=== PATIENT | male | born 1935 | race African-American/Black ===

== ENCOUNTER 2018-07-08 18:00 | Inpatient (IN) | payer MEDICARE ==
[2018-07-08 18:29] LABS: #Eosinphils 0.2 thou/uL (0.0-0.7); #Lymphocytes 0.8 thou/uL (1.20-3.40); #Monocytes 0.5 thou/uL (0.11-0.59); #Neutrophils 5.5 thou/uL (1.40-6.50); %Basophils 0.1 % (0.0-1.0); %Eosinophils 2.3 % (0.0-10.0); %Lymphocytes 11.3 % (21.0-51.0); %Monocytes 6.7 % (0.0-10.0); %Neutrophils 79.7 % (42.0-75.0); Hemoglobin 13.7 g/dL (14.0-18.0); Mean Corpuscular HGB CONC 31.9 g/dL (32.0-36.0); Mean Corpuscular Hemoglobin 30.1 pg (27.0-31.0); Mean Corpuscular Volume 94.3 fL (78.0-98.0); Mean Platelet Volume 8.4 fL (7.4-10.4); Platelet Count 147 thou/uL (130-400); RBC Distribution Width 12.9 % (11.5-14.5); Red Blood Cell (RBC) Count 4.55 mill/uL (4.70-6.10); White Blood Cell (WBC) Count 6.9 thou/uL (4.8-10.8)
[2018-07-08 18:45] LABS: ALT (SGPT) 9 U/L (8-55); AST (SGOT) 15 U/L (5-34); Albumin 4.1 g/dL (3.4-4.8); Alkaline Phosphatase 88 U/L (40-150); Anion Gap 13 mmol/L (10-20); BUN (Urea Nitrogen) 20 mg/dL (8.4-25.7); Bilirubin, Total 0.8 mg/dL (0.2-1.2); Calc. Creatinine Clearance 0 mL/min (70-130); Calcium 9.3 mg/dL (7.8-10.44); Carbon Dioxide 27 mmol/L (23-31); Chloride 107 mmol/L (98-107); Estimated GFR-MDRD 48; Globulin 2.9 g/dL (2.4-3.5); Glucose 113 mg/dL (83-110); Potassium 4.1 mmol/L (3.5-5.1); Sodium 143 mmol/L (136-145)
--- NOTE | 2018-07-08 20:52 | PDOC.FPRHP ---
- History of Present Illness Chief Complaint: Chest pain History of Present Illness: Mr. Lewis presents to the [place] ED for SOB and CP, he arrives via air for reported Vtach seen on monitor He reports that earlier today while visiting his child's grave he started to experience SOB and Chest pain, he did a few puffs of his albuterol inhaler with improvement of his SOB, the chest pain continued and is described as substernal , non radiating, dull pain, not relieved with nitroglycerin. He does not remember chest pain like this prior or having any chest pain around the time his stents were placed. He denies diaphoresis, nausea, diarrhea or syncope during this episode. The chest pain had resolved by the time of this history. ED Course: Vtach seen on cardiac care unit nurse in outside ED amio 150mg bolus and 1mg/min drip began at 1700 txfr to [facility] via air CBC, CMP, Trop, BNP, TSH - Allergies/Adverse Reactions Allergies Allergy/AdvReac Type Severity Reaction Status Date / Time No Known Drug Allergies Allergy Verified 07/08/18 23:12 - History PMHx: DMII, HTN, CAD, gout, Parkinsons PSHx: 7 cardiac stents over 30 years FHx: CAD, CA Social: former heavy drinker and smoker, denies drugs - Review of Systems General: denies: fever/chills, weight/appetite/sleep changes, fatigue Respiratory: reports: shortness of breath. denies: cough, congestion Cardiovascular: reports: chest pain. denies: palpitation, edema, orthopnea Gastrointestinal: denies: nausea, vomiting, diarrhea Genitourinary: denies: incontinence, dysuria Skin: denies: rashes, lesions Musculoskeletal: denies: pain, tenderness Neurological: denies: numbness, syncope, weakness - Vital signs BP: 168/79 HR: 52 RR: 22 Tmax: 97.9 Pox: 100% on RA Wt: 75.75kg - Physical Exam Constitutional: NAD HEENT: normocephalic and atraumatic, grossly normal vision, grossly normal hearing, MMM Neck: supple, trachea midline, no JVD Chest: no-tender to palpation, no lesions Heart: normal S1/S2, pulses present, no edema, other (sinus bradycardia) Lungs: CTAB, no respiratory distress, good air movement, no rales/rhonchi, no wheezing, no retractions Abdomen: soft, non-tender, no masses/distention Musculoskeletal: normal structure, normal tone Neurological: normal sensation, other (b/l tremor presnent) Skin: no rash/lesions, good turgor Heme/Lymphatic: no unusual bruising or bleeding Psychiatric: normal mood and affect FMR H&P: Results - Labs Result Diagrams: 07/08/18 18:22 07/08/18 18:22 Lab results: WBC 6.9 thou/uL (4.8-10.8) 07/08/18 18:22 Hgb 13.7 g/dL (14.0-18.0) L 07/08/18 18:22 Hct 42.9 % (42.0-52.0) 07/08/18 18:22 MCV 94.3 fL (78.0-98.0) 07/08/18 18:22 Plt Count 147 thou/uL (130-400) 07/08/18 18:22 Neutrophils % 79.7 % (42.0-75.0) H 07/08/18 18:22 Sodium 143 mmol/L (136-145) 07/08/18 18:22 Potassium 4.1 mmol/L (3.5-5.1) 07/08/18 18:22 Chloride 107 mmol/L (98-107) 07/08/18 18:22 Carbon Dioxide 27 mmol/L (23-31) 07/08/18 18:22 BUN 20 mg/dL (8.4-25.7) 07/08/18 18:22 Creatinine 1.67 mg/dL (0.7-1.3) H 07/08/18 18:22 Glucose 113 mg/dL (83-110) H 07/08/18 18:22 Lactic Acid 1.5 mmol/L (0.5-2.2) 07/08/18 18:22 Calcium 9.3 mg/dL (7.8-10.44) 07/08/18 18:22 Total Bilirubin 0.8 mg/dL (0.2-1.2) 07/08/18 18:22 AST 15 U/L (5-34) 07/08/18 18:22 ALT 9 U/L (8-55) 07/08/18 18:22 Alkaline Phosphatase 88 U/L (40-150) 07/08/18 18:22 B-Natriuretic Peptide 436.0 pg/mL (0-100) H 07/08/18 18:22 Serum Total Protein 7.0 g/dL (5.8-8.1) 07/08/18 18:22 Albumin 4.1 g/dL (3.4-4.8) 07/08/18 18:22 FMR H&P: A/P - Problem List (1) Chest pain Current Visit: Yes Status: Acute Code(s): R07.9 - CHEST PAIN, UNSPECIFIED (2) CAD (coronary artery disease) Current Visit: Yes Status: Acute Code(s): I25.10 - ATHSCL HEART DISEASE OF [place] CORONARY ARTERY W/O ANG PCTRS (3) DMII (diabetes mellitus, type 2) Current Visit: Yes Status: Acute (4) HTN (hypertension) Current Visit: Yes Status: Acute Code(s): I10 - ESSENTIAL (PRIMARY) HYPERTENSION (5) Gout Current Visit: Yes Status: Acute Code(s): M10.9 - GOUT, UNSPECIFIED (6) HLD (hyperlipidemia) Current Visit: Yes Status: Acute Code(s): E78.5 - HYPERLIPIDEMIA, UNSPECIFIED (7) CHF (congestive heart failure) Current Visit: Yes Status: Acute Code(s): I50.9 - HEART FAILURE, UNSPECIFIED (8) Parkinson disease Current Visit: Yes Status: Acute Code(s): G20 - PARKINSON'S DISEASE - Plan Chest pain - resolved, EKG shows sinus bradycardia, trop negx3, BNP near baseline - unlikely cardiac in nature, but significant cardiac history warrants further observation - EKG and nitro prn for significant chest pain - appreciate cardiology recs regarding stress vs cath vs imaging Reported Vtach - seen on cardiac care unit nurse, not on EKG, asymptomatic - believed 2/2 tremor - continuous cardiac monitoring - cardiology consulted from ED, continue amiodarone debora Loaiza - increase in magnitude of tremor - continue home meds - neurology, Dr. Edgar consulted from ED, appreciate recs CAD - significant hx, see above for plan - continue home meds DMII - continue home meds - mild SSI HTN - continue home meds, hydralazine prn SBP>180 HLD - continue home meds Gout - continue home meds Code: full ppx: lovenox Dispo: admit to IM, continue amio drip, continuous cardiac monitoring FMR H&P: Upper Level - Pertinent history 83M here as transfer from [place] for v-tach. Issue started at 1400 today prior to admission. He complained of having some shortness of breath and substernal tightness that did not radiate, and occurred while he was at rest. He was sent to ER in [facility] for further evaluation. He was found to have v-tach. He was transferred to [facility] for further evaluation. Here, Cardiology reviewed his EKG here and felt it was unlikely to represent v-tach. He was started on 150 bolus of amiodarone, now on a 1mg/min drip. Gen: Alert, oriented HEENT: Normocephalic, hearing and vision grossly intact CV: RRR with no apparent m/g/r Resp: CTA bilat, no wheezing or crackles heard Ext: No pitting edema EKG: Sinus tamica 1. V-tach - Currently asymptomatic without sign of v-tach on EKG - Plan, Cardiology consulted by ER. Appreciate recs. - Continue amiodarone drip, at 6 hour, 2300, reduce amio to 0.5 mg/min 2. CKD3 - At baseline, will avoid addition of nephrotoxic drugs when possible 3. Indeterminate BNP - Hx of CHF. At baseline compared to before. Not symptomatic at this time and without sign on exam. Reevaluate if symptomatic. See international organizer note for other chronic issues. - Plan Date/Time: 07/08/182050 I, [Ravinder Delgadillo], have evaluated this patient and agree with findings/plan as outlined by international organizer resident. Pertinent changes/additions are listed here. Addendum - Attending - Attending Attestation Date/Time: 07/09/18 9272 I personally evaluated the patient and discussed the management with Dr. Mckenzie. I agree with and repeated the History, Examination, Assessment and Plan documented above with any addition or exceptions noted below.
[2018-07-08 20:57] LABS: Troponin I 0.016 ng/mL (< 0.028)
--- NOTE | 2018-07-08 22:14 | CON ---
DATE OF CONSULTATION: 07/08/2018 REASON FOR CONSULTATION: VT. HISTORY OF PRESENT ILLNESS: Mr. Lewis is a very pleasant 83-year-old gentleman, who comes to the hospital for VT. He was taken to the ER for complaints of shortness of breath. He was evaluated in the ER. He had an episode of what appeared to be a wide-complex rhythm. He was quite stable during the episode with no syncopal or presyncopal symptoms. He has significant Parkinson's tremor, but because of the possibility of VT and his history of coronary artery disease, he was placed on amiodarone drip and transferred over for further evaluation and care. This all happened in [place]. I saw Mr. Lewis for the first time about 1 month ago. He was establishing care with me. He used to see Dr. Dion Escalante in [place] for his heart. He has had about 6 stents from what he told me, the last one was about 8 or 9 months ago in the [facility]. At that time, he had an abnormal stress test and he ended up undergoing heart catheterization, apparently, this was a very long and complex procedure that lasted about 4 hours, this was just his last stent. His family told me that they do remember being told that he had a weak heart, but they did not remember how weak it was and he does not have an AICD in place. On my evaluation, Mr. Lewis tells me that he was a little short winded before and that is what made him come in, he has not felt any presyncope or syncope. PAST MEDICAL HISTORY: 1. Hypertension. 2. Type 2 diabetes. 3. Hyperlipidemia. 4. COPD. 5. Gout. 6. History of heart failure, unknown ejection fraction. 7. CKD stage 3. 8. Parkinson disease. PAST SURGICAL HISTORY: 1. Stents multiple times as above. 2. Neck surgery. FAMILY HISTORY: Mother with cancer, from this. Father with emphysema. A sister of sudden cardiac . SOCIAL HISTORY: Former smoker over 10 years ago. Drinks 2 cups of tea a day. No alcohol. No drugs. ALLERGIES: NO KNOWN DRUG ALLERGIES. OUTPATIENT MEDICATIONS: 1. Glipizide 5 mg half a tablet a day. 2. Plavix 75 mg a day. 3. Lisinopril 10 mg a day. 4. Furosemide 10 mg a day. 5. Nitroglycerin sublingual p.r.n. REVIEW OF SYSTEMS: A 12-point review of systems was done and was all negative unless stated in the history of present illness. PHYSICAL EXAMINATION: VITAL SIGNS: Temperature 97.5, pulse 57, respiratory rate 18, saturating 97% on room air, and blood pressure 129/56. GENERAL: Awake, alert, and oriented x3, in no distress. HEENT: Normocephalic and atraumatic. NECK: Supple. LUNGS: Clear. CARDIOVASCULAR: S1 and S2. No S3 or S4. There is a grade 2/6 systolic murmur in the right upper sternal border. ABDOMEN: Soft. Positive bowel sounds. EXTREMITIES: Trace edema. SKIN: Warm and dry. LABORATORY DATA: Laboratory workups reviewed. CBC with a white count of 6.9, hemoglobin of 13.7, hematocrit of 42, and platelet count of 147. Chemistry is unremarkable except for creatinine of 1.67, this is actually close to his baseline of 1.5 to 1.7; BUN of 20, GFR is 48. Troponin is negative x2. BNP was 436. Last TSH was normal at 1.6. EKG was reviewed, no ischemic changes. Telemetry strip was reviewed, it seems like a wide-complex rhythm. My suspicion is this was artifact as you could run out QRS in between the wide-complex rhythms and he has a very significant Parkinson's tremor. ASSESSMENT AND PLAN: 1. Wide-complex rhythm. 2. Coronary artery disease. 3. Ischemic cardiomyopathy, unknown left ventricular function. 4. Multiple stents placed in the past, most recently in 2018. 5. Parkinson disease. PLAN: 1. We will keep the amiodarone drip overnight. More than likely I will stop it in the morning as this is most likely artifact. 2. We will continue to trend troponins. If these turn negative, we will not plan any further risk stratification. 3. We will get an echocardiogram to assess LV function, valvular structures. 4. We will follow. Job ID: [id number]
[2018-07-08] MEDS ORDERED: Ondansetron ODT 4 MG TAB PO PRN (22:20)
[2018-07-08] MEDS ORDERED: Dextrose 50% Abboject 50 ML SYRINGE SLOW IVP PRN (22:20)
[2018-07-08] MEDS ORDERED: Dextrose 5% in Water 1,000 ML IV PRN (22:20)
[2018-07-08] MEDS ORDERED: Ondansetron PF 4 MG/2 ML Vial IVP PRN (22:20)
[2018-07-08] MEDS ORDERED: HumaLOG 300 UNITS/3 ML VIAL SC PRN ×2 (22:20)
[2018-07-08] MEDS ORDERED: Nitroglycerin 0.4 MG TAB (25 Tab Bottle) PO PRN (22:20)
[2018-07-08] MEDS ORDERED: Amiodarone 450 MG in Dextrose 5% in Water 250 ML IVPB SCH (22:20)
[2018-07-08] MEDS ORDERED: Acetaminophen 325 MG TAB PO PRN (22:20)
[2018-07-08] MEDS ORDERED: hydrALAZINE 20 MG/ML VIAL SLOW IVP PRN (22:20)
[2018-07-08 23:14] VITALS: BMI 24.1
[2018-07-09 05:24] LABS: #Eosinphils 0.2 thou/uL (0.0-0.7); #Monocytes 0.6 thou/uL (0.11-0.59); #Neutrophils 4.6 thou/uL (1.40-6.50); %Basophils 0.4 % (0.0-1.0); %Eosinophils 2.7 % (0.0-10.0); %Lymphocytes 14.9 % (21.0-51.0); %Neutrophils 72.9 % (42.0-75.0); Hemoglobin 12.2 g/dL (14.0-18.0); Mean Corpuscular Volume 94.2 fL (78.0-98.0); Mean Platelet Volume 9.1 fL (7.4-10.4); Platelet Count 146 thou/uL (130-400); RBC Distribution Width 12.9 % (11.5-14.5); Red Blood Cell (RBC) Count 3.93 mill/uL (4.70-6.10); White Blood Cell (WBC) Count 6.4 thou/uL (4.8-10.8)
[2018-07-09 05:46] LABS: ALT (SGPT) Less than 7 U/L (8-55); AST (SGOT) 13 U/L (5-34); Albumin 3.5 g/dL (3.4-4.8); Alkaline Phosphatase 72 U/L (40-150); Anion Gap 10 mmol/L (10-20); BUN (Urea Nitrogen) 19 mg/dL (8.4-25.7); Bilirubin, Total 0.7 mg/dL (0.2-1.2); Calc. Creatinine Clearance 39 mL/min (70-130); Calcium 8.4 mg/dL (7.8-10.44); Carbon Dioxide 26 mmol/L (23-31); Chloride 109 mmol/L (98-107); Estimated GFR-MDRD 57; Globulin 2.3 g/dL (2.4-3.5); Glucose 78 mg/dL (83-110); Potassium 3.7 mmol/L (3.5-5.1); Protein, Total 5.8 g/dL (5.8-8.1); Sodium 141 mmol/L (136-145)
--- NOTE | 2018-07-09 07:44 | CON ---
DATE OF CONSULTATION: 07/09/2018 CONSULTING PHYSICIAN: [facility]. IMPRESSION: Parkinson disease. PLAN: Continue current treatment. HISTORY OF PRESENT ILLNESS: Mr. Lewis is an 83-year-old gentleman with a history of Parkinson disease for the last 5 or 6 years. He is followed by a neurologist in [place]. He was admitted due to shortness of breath. He has no particular complaints otherwise. PAST MEDICAL HISTORY: As listed per chart. ALLERGIES: NONE REPORTED. SOCIAL HISTORY: He is . He does not smoke or drink. FAMILY HISTORY: Noncontributory. MEDICATIONS: Medication list was reviewed. . REVIEW OF SYSTEMS: A 10-system review of systems is otherwise negative. PHYSICAL EXAMINATION: GENERAL: He is a healthy-appearing elderly man, in no distress HEENT: Pupils are equal and reactive. Conjunctivae clear. Oropharynx clear. NECK: Supple. No lymphadenopathy. EXTREMITIES: No cyanosis, clubbing, or edema. NEUROLOGIC: He is alert and appropriate. His speech is fluent and clear. Cranial nerves are intact. Motor exam shows good strength bilaterally. Cerebellar testing shows diminished rapid alternating movements bilaterally. He has a rest tremor in both hands. Gait was not tested. Sensations intact to touch. LABORATORY DATA: EKG showed sinus rhythm. SUMMARY: This is an elderly gentleman with Parkinson disease. I am uncertain as to why I was consulted. His care appears appropriate. He can follow up with his primary neurologist. Job ID: [id number]
[2018-07-09] MEDS ORDERED: Aspirin 325 mg Enteric Coated Tablet PO SCH (09:00)
--- NOTE | 2018-07-09 09:10 | PDOC.FM ---
- Subjective Subjective: Pt feeling well. No CP or palpitations overnight. Pt states he wants to go home. Today he mentioned that his CP resolved after moving around a bit and "working the pain out" no fever/chills, no sob no cough - Objective MAR Reviewed: Yes Vital Signs & Weight: Vital Signs (12 hours) Temp Pulse Resp BP Pulse Ox 07/09/18 07:16 98.2 F 07/09/18 04:39 98.4 F 07/08/18 23:46 100 07/08/18 23:14 98.6 F 51 L 12 162/63 H 100 Weight Weight 74.162 kg Most Recent Monitor Data Heart Rate from ECG 49 NIBP 158/91 NIBP BP-Mean 113 Respiration from ECG 16 SpO2 100 I&O: 07/08/18 07/09/18 07/10/18 06:59 06:59 06:59 Intake Total 66 Balance 66 Result Diagrams: 07/09/18 03:58 07/09/18 03:58 Phys Exam - Physical Examination Constitutional: NAD HEENT: moist MMs, sclera anicteric Neck: no JVD, supple Respiratory: no rales, clear to auscultation bilateral Cardiovascular: RRR, no significant murmur Gastrointestinal: soft, non-tender Musculoskeletal: no edema, pulses present Neurological: normal sensation, moves all 4 limbs resting tremor Lymphatic: no nodes Psychiatric: normal affect, A&O x 3 Skin: no rash, normal turgor Dx/Plan (1) CAD (coronary artery disease) Code(s): I25.10 - ATHSCL HEART DISEASE OF [place] CORONARY ARTERY W/O ANG PCTRS Status: Acute (2) Chest pain Code(s): R07.9 - CHEST PAIN, UNSPECIFIED Status: Acute (3) DMII (diabetes mellitus, type 2) Status: Acute (4) Gout Code(s): M10.9 - GOUT, UNSPECIFIED Status: Acute (5) HLD (hyperlipidemia) Code(s): E78.5 - HYPERLIPIDEMIA, UNSPECIFIED Status: Acute (6) HTN (hypertension) Code(s): I10 - ESSENTIAL (PRIMARY) HYPERTENSION Status: Acute (7) Parkinson disease Code(s): G20 - PARKINSON'S DISEASE Status: Acute - Plan Plan: Chest pain A- Likely psychogenic vs. musculoskeletal. Resolved with moving/activity, EKG shows sinus bradycardia with PVCs overnight, trop negx3, BNP near baseline P- cards consulted, recs appreciated - likely DC amiodarone pending cards action, possible echo today Reported Vtach A- seen on surveillance monitor, not on EKG, asymptomatic. Now it is believed 2/2 tremor. Pt is stable overnight and currently on amio drip P- continuous cardiac monitoring - likely DC amio drip today Parkinsons A- increase in magnitude of tremor. Neuro signed off P- continue home meds CAD - significant hx, see above for plan - continue home meds DMII - continue home meds - mild SSI HTN - continue home meds, hydralazine prn SBP>180 HLD - continue home meds Gout - continue home meds Code: full ppx: lovenox Dispo: per cards recs, possibly today or tomorrow Addendum - Attending - Attending Attestation Date/Time: 07/09/18 0190 I personally evaluated the patient and discussed the management with Dr. Simms. I agree with the History, Examination, Assessment and Plan documented above with any addition or exceptions noted below. Patient here after acute onset of chest pain in a very stressful setting followed by ER presentation and emergent transfer here due to concern for Vtach on the tele strip not noted on 12 lead EKG. This was likely artifact as created by the patient's resting tremor from his known history of Parkinson's disease. He remained on amiodarone drip overnight but became bradycardic. Drip has now been stopped and we are awaiting any further recommendations from Cardiology. Neurology consulted by ER which was not indicated as patient's parkinson's disease is stable and overall well controlled. Awaiting cardiology recs and will be stable for discharge once they have completed their workup/ interventions.
[2018-07-09] MEDS ORDERED: Aspirin 81 mg Enteric Coated Tablet PO SCH (09:34)
[2018-07-09] MEDS ORDERED: Carbidopa/Levodopa CR 50-200 mg Tablet PO SCH ×3 (10:00→15:00)
[2018-07-09] MEDS: Clopidogrel Bisulfate 75 MG TAB PO SCH (10:09)
[2018-07-09] MEDS: Enoxaparin Sodium 40 MG/0.4 ML SYRINGE SC SCH (10:09)
--- NOTE | 2018-07-09 13:28 | PDOC.CTH ---
Cardiology Progress Note - Subjective He is doing well. No chest pain. He continues to have a lot of tremors from his parkinsons. His telemetry continues to show a lot of artifact from his tremors. - Objective Vital Signs Temp 07/09/18 11:14 98.2 F 07/09/18 07:16 98.2 F 07/09/18 04:39 98.4 F Weight 163 lb 8 oz 07/08/18 07/09/18 07/10/18 06:59 06:59 06:59 Intake Total 66 Balance 66 - Physical Examination General/Neuro: alert & oriented x3, NAD Neck: no JVD present Lungs: unlabored respirations Heart: RRR Abdomen: NT/ND Extremities: other: (no edema) - Telemetry Telemetry Rhythm: Sbrady, baseline artifact - Labs Result Diagrams: 07/09/18 03:58 07/09/18 03:58 Troponin/CKMB Troponin I 0.016 ng/mL (< 0.028) 07/08/18 20:22 - Assessment/Plan 1. Baseline artifact on telemetry. No VT 2. CAD, stable, no ACS. 3. Acute on chronic systolic heart failure. 4. Hx of multiple stents, , currenty asymptomatic. PLAN: - Wide complex rhythm most likely artifact from parkinsonian tremors, he continues to have them and it is at the same rate as his original tracing. If he would have had VT at 300 bpm he would have passed out or coded and he was completely normal without any issues while he was having the rhythm except for tremors. - Will get echo and more recommendations pending echo results.
[2018-07-09] MEDS ORDERED: Non-Formulary Item 1 EACH (Carbidopa/Levodopa [Sinemet Cr] 1 TAB) PO SCH (15:00)
[2018-07-09] MEDS: Carbidopa/Levodopa CR 50-200 mg Tablet PO SCH ×2 (16:07→20:25)
[2018-07-09] MEDS ORDERED: Polyethylene Glycol 3350 17 GM Packet PO PRN (18:16)
[2018-07-09] MEDS ORDERED: Lisinopril 2.5 MG TAB PO SCH (18:30)
[2018-07-09] MEDS: Mometasone/Formoterol 120 PUFF INHALER INH SCH (18:42)
--- NOTE | 2018-07-10 07:28 | PDOC.FM ---
- Subjective Subjective: Pt feeling well this AM. He has not had any cp since his first episode at his sons [employer]. He feels well enough to go home. No complaints at this time. no fever/chills, no cp/palpitations, no sob - Objective MAR Reviewed: Yes Vital Signs & Weight: Vital Signs (12 hours) Temp Pulse Ox 07/10/18 07:06 98.8 F 07/10/18 03:54 98.6 F 07/10/18 00:00 98.8 F 07/09/18 20:00 98.8 F 07/09/18 19:35 100 Weight Weight 74.162 kg Most Recent Monitor Data Heart Rate from ECG 67 NIBP 145/70 NIBP BP-Mean 95 Respiration from ECG 16 SpO2 99 I&O: 07/09/18 07/10/18 07/11/18 06:59 06:59 06:59 Intake Total 66 1210 Output Total 850 Balance 66 360 Result Diagrams: 07/09/18 03:58 07/09/18 03:58 Phys Exam - Physical Examination Constitutional: NAD HEENT: moist MMs, sclera anicteric Neck: no JVD, supple Respiratory: no wheezing, clear to auscultation bilateral Cardiovascular: RRR, no significant murmur Gastrointestinal: soft, non-tender Musculoskeletal: no edema, pulses present Neurological: moves all 4 limbs resting tremor Lymphatic: no nodes Psychiatric: normal affect, A&O x 3 Skin: no rash, normal turgor Dx/Plan (1) CAD (coronary artery disease) Code(s): I25.10 - ATHSCL HEART DISEASE OF [place] CORONARY ARTERY W/O ANG PCTRS Status: Acute (2) Chest pain Code(s): R07.9 - CHEST PAIN, UNSPECIFIED Status: Acute (3) DMII (diabetes mellitus, type 2) Status: Acute (4) Gout Code(s): M10.9 - GOUT, UNSPECIFIED Status: Acute (5) HLD (hyperlipidemia) Code(s): E78.5 - HYPERLIPIDEMIA, UNSPECIFIED Status: Acute (6) HTN (hypertension) Code(s): I10 - ESSENTIAL (PRIMARY) HYPERTENSION Status: Acute (7) Parkinson disease Code(s): G20 - PARKINSON'S DISEASE Status: Acute - Plan Plan: Chest pain A- Likely psychogenic vs. musculoskeletal. Resolved with moving/activity, EKG shows sinus bradycardia with PVCs overnight, trop negx3, BNP near baseline. DCd amiodarone drip P- cards consulted, recs appreciated - echo today and DC home pending normal read Reported Vtach A- seen on radiation monitor, not on EKG, asymptomatic. Now it is believed 2/2 tremor. Pt is stable in hospital stay P- continuous cardiac monitoring Parkinsons A- increase in magnitude of tremor. Neuro signed off P- continue home meds CAD - significant hx, see above for plan - continue home meds DMII - continue home meds - mild SSI HTN - continue home meds, hydralazine prn SBP>180 HLD - continue home meds Gout - continue home meds Code: full ppx: lovenox Dispo: per cards recs, likely today pending norm echo Addendum - Attending - Attending Attestation Date/Time: 07/10/18 1316 I personally evaluated the patient and discussed the management with Dr. Simms at 1015 am. I agree with the History, Examination, Assessment and Plan documented above with any addition or exceptions noted below. Patient requesting to go home this morning. No recurrent chest pain or arrhythmia. ECHO pending. Sinus bradycardia- appreciate cards input.
[2018-07-10] MEDS: Mometasone/Formoterol 120 PUFF INHALER INH SCH (08:51)
[2018-07-10] MEDS: Carbidopa/Levodopa CR 50-200 mg Tablet PO SCH ×2 (08:56→14:18)
[2018-07-10] MEDS: Enoxaparin Sodium 40 MG/0.4 ML SYRINGE SC SCH (08:56)
[2018-07-10] MEDS: Clopidogrel Bisulfate 75 MG TAB PO SCH (08:57)
[2018-07-10] MEDS ORDERED: Non-Formulary Item 1 EACH (Potassium Chloride [Potassium Chloride] 10 MEQ) PO SCH (09:00)
[2018-07-10] MEDS ORDERED: Tamsulosin HCl 0.4 MG CAP PO SCH (09:00)
[2018-07-10] MEDS ORDERED: Allopurinol 100 MG TAB PO SCH (09:00)
[2018-07-10] MEDS ORDERED: Clopidogrel Bisulfate 75 MG TAB PO SCH (09:00)
[2018-07-10] MEDS ORDERED: Aspirin 81 mg Enteric Coated Tablet PO SCH ×2 (09:00)
[2018-07-10] MEDS ORDERED: Furosemide 20 MG TAB PO SCH (09:00)
[2018-07-10] MEDS ORDERED: glipiZIDE 5 MG TAB PO SCH (09:00)
[2018-07-10] MEDS ORDERED: Lisinopril 2.5 MG TAB PO SCH (09:00)
[2018-07-10] MEDS ORDERED: Folic Acid 1 MG TAB PO SCH (09:00)
[2018-07-10 14:59] VITALS: TEMP 97.9
[2018-07-10 16:30] VITALS: BP 132/69
[2018-07-10] MEDS ORDERED: Amlodipine 5 MG TAB PO SCH (16:30)
--- NOTE | 2018-07-10 22:12 | DIS ---
DATE OF ADMISSION: 07/08/2018 DATE OF DISCHARGE: 07/10/2018 RESIDENT: Pradeep Simms MD ADMITTING ATTENDING: Reed Schmidt MD DISCHARGE ATTENDING: Dayanara Gonzalez MD CONSULTS: Cardiology. PROCEDURES: None. PRIMARY DIAGNOSIS: Atypical chest pain. SECONDARY DIAGNOSES: Reported ventricular tachycardia, Parkinson's, coronary artery disease, type 2 diabetes, hypertension, hyperlipidemia, and gout. DISCHARGE MEDICATIONS: 1. Tamsulosin, Flomax 0.4 mg p.o. daily. 2. Levodopa one tablet p.o. t.i.d. 3. Ranolazine 1000 mg p.o. b.i.d. 4. Quetiapine 25 mg p.o. at bedtime. 5. Potassium chloride 10 mEq p.o. daily. 6. Nitroglycerin 0.4 mg sublingual p.r.n. 7. Glipizide 5 mg p.o. daily. 8. Lisinopril 2.5 mg p.o. daily. 9. Furosemide 20 mg p.o. q.a.m. 10. Folic acid 1 mg p.o. daily. 11. Fluticasone 50 mcg inhaler daily. 12. Clopidogrel 75 mg p.o. daily. 13. Aspirin 81 mg p.o. daily. 14. Amlodipine 5 mg p.o. daily. 15. Allopurinol 100 mg p.o. daily. 16. Acetylcysteine 20% 4 mL inhaled b.i.d. DISCONTINUED MEDICATIONS: None. HISTORY OF PRESENT ILLNESS AND HOSPITAL COURSE: This is an 83-year-old male with past medical history of Parkinson's and coronary artery disease, who presented to the [facility] after having chest pain. The patient was at his son's [facility] site, where he felt substernal chest pain that was relieved by movement and activity as he worked out his pain. Pain was not relieved with nitroglycerin. However, on the monitors in [facility], the patient had suspected ventricular tachycardia. The patient was relatively asymptomatic. He was flown via helicopter from [facility] to [place] emergently for ventricular tachycardia, where he was found at [place] on EKG to have artifact secondary to his tremor with Parkinson's. It was thought that his ventricular tachycardia on the monitor in [place] was actually an artifact of his parkinsonian tremor, but patient was admitted for precaution to [facility] and put on amiodarone drip. Cardiology was consulted and discontinued the amiodarone drip and recommended no further cardiac workup after EKG and troponins were all negative. After cardiology evaluation and echocardiogram, which came back normal with an ejection fraction of 55% to 60%, the patient was deemed stable for discharge and discharged home. DISPOSITION: Stable. DISCHARGE INSTRUCTIONS: 1. Location: Home. 2. Diet: Heart healthy. 3. Activity: As tolerated. 4. Followup: Follow up with Dr. Adams in [address] Alexandra Burnham, primary care provider, in 7 days. Job ID: [id number]
[2018-07-11] MEDS ORDERED: Amlodipine 5 MG TAB PO SCH (09:00)
--- NOTE | 2018-07-12 17:42 | EKG ---
Test Reason : Blood Pressure : / mmHG Vent. Rate : 053 BPM Atrial Rate : 053 BPM P-R Int : 168 ms QRS Dur : 104 ms QT Int : 444 ms P-R-T Axes : 054 000 016 degrees QTc Int : 416 ms Sinus bradycardia Otherwise normal ECG When compared with ECG of 08-JUL-2018 18:13, (Unconfirmed) Premature ventricular complexes are no longer Present Confirmed by DR. Lisa LUCIANO ([id number]) on 07/12/2018 5:41:30 PM Referred By: DANITZA Confirmed By:DR. Lisa LUCIANO
--- NOTE | 2018-07-13 12:44 | PQF ---
MAGEN WASHINGTON RAE ANN MD [id number] [facility] B04-B04 [id number] CLINICAL DOCUMENTATION CLARIFICATION FORM: POST DISCHARGE DATE: 07/13/2018 ATTN: Dr. Gonzalez Please exercise your independent, professional judgment in responding to the clarification form. Clinical indicators are provided on the bottom of this form for your review Please check appropriate box(s) to clarify if the following diagnosis has been ruled in or ruled out: Acute on chronic systolic heart failure [ ] Ruled in diagnosis [ ] Continue to treat [ ] Resolved [ X ] Ruled out diagnosis [ ] Cannot rule out diagnosis [ ] Other diagnosis (please specify) [ ] Unable to determine In addition, please specify: Present on Admission (POA): [ ] Yes [ ] No [ ] Unable to determine For continuity of documentation, please document condition throughout progress notes and discharge summary. Thank You. CLINICAL INDICATORS - SIGNS / SYMPTOMS / LABS Per H&P: Transferred to [place] due to suspected ventricular tachycardia. Experienced SOB and chest pain. Indeterminate BNP. Hx of CHF. At baseline compared to before. Not symptomatic at this time and without sign on exam. Reevaluati if symptomatic. Per cardiology 07/09- PN's (Angie): Acute on chronic systolic heart failure. Per labs: BNP 436.0 on 07/08. Discharge Summary: Primary diagnosis: Atypical chest pain. Ejection fraction of 55% to 60%. Suspected ventricular tachycardia--ruled out (artifact from parkinsonian tremors). RISK FACTORS Per H&P: CAD with stents. Hypertension. History of smoking. TREATMENTS Per medications: Continued from home: Furosemide 20 mg po q am. (This form is maintained as a part of the permanent medical record) 2014 [employer]. All Rights Reserved [email or web address] [phone] MTDD
--- NOTE | 2018-07-13 12:53 | PQF ---
FELIXMAGEN ROBERT r* [id number] [facility] - B4 [id number] CLINICAL DOCUMENTATION IMPROVEMENT CLARIFICATION FORM: ICD-10 Updated PLEASE DO AN ADDENDUM TO THE PROGRESS NOTE WITH ANY DOCUMENTATION UPDATES OR ADDITIONS AND CARRY THROUGH TO DC SUMMARY. THANK YOU. DATE: 07-13-18 ATTN: DR. CARROLL / DR. TOVAR Please exercise your independent, professional judgment in responding to the clarification form. Clinical indicators are provided on the bottom of this form for your review Please check appropriate box(s): HEART FAILURE: A. TYPE: [ ] Systolic / HFrEF [ ] Diastolic / HFpEF [ ] Combined Systolic / Diastolic B. ACUITY [ ] Acute [ ] Acute on Chronic [ ] Chronic [ ] Other diagnosis [ ] Unable to determine Present on Admission [ ] Yes [ ] No For continuity of documentation, please document condition throughout progress notes and discharge summary. Thank You. CLINICAL INDICATORS - SIGNS / SYMPTOMS / LABS 07-08 ([place]): CHF - STATUS ACUTE - UNSPECIFIED TYPE 07-08 ([facility]): HX OF CHF - UNKNOWN EF 07-08 BNP 436 07-09 ([facility]): ACUTE ON CHRONIC SYSTOLIC CHF - PENDING ECHO RESULTS 07-10 ECHO: EF 55-60% - E/A FLOW REVERSALS NOTED. 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 SUGGESTIVE OF DIASTOLIC DYSFUNCTION MAR: 07-10 LASIX - PO; 07-09/07-10 ZESTRIL THANK YOU, ZHANNA (This form is maintained as a part of the permanent medical record) 2015 [employer]. All Rights Reserved Zhanna Hurt RN, BS [email or web address]
== END 2018-07-10 16:36 | disposition home or self-care (01) | DRG 313 ==
LOC: ERS 18:00 → ERHOLD 20:04 → IMCU/EMU 22:35
PROVIDERS: ADMIT Emergency Medicine; ATTEND Emergency Medicine
DX: R07.89 Other chest pain (principal); I13.0 Hypertensive heart and chronic kidney disease with heart failure and stage 1 through stage 4 chronic kidney disease, or unspecified chronic kidney disease; I50.22 Chronic systolic (congestive) heart failure; E11.22 Type 2 diabetes mellitus with diabetic chronic kidney disease; G20 Parkinson's disease; N18.3 Chronic kidney disease, stage 3 (moderate); I25.10 Atherosclerotic heart disease of native coronary artery without angina pectoris; E78.5 Hyperlipidemia, unspecified; I25.5 Ischemic cardiomyopathy; M1A.9XX0 Chronic gout, unspecified, without tophus (tophi); Z87.891 Personal history of nicotine dependence; Z95.5 Presence of coronary angioplasty implant and graft; Z79.84 Long term (current) use of oral hypoglycemic drugs; Z79.82 Long term (current) use of aspirin; Z79.899 Other long term (current) drug therapy
CPT/HCPCS: 36415; 36416; 80053; 83605; 83735; 83880; 84443; 84484; 85025; 93005; 93010; 93306; 96365; 96366; J0360; J1650; J7070

== ENCOUNTER 2018-09-14 03:24 | Observation (INO) | payer MEDICARE ==
--- NOTE | 2018-09-14 05:01 | PDOC.FPRHP ---
- History of Present Illness Chief Complaint: chest pain History of Present Illness: The patient is an 83YO AAM with a PMH significant for CAD s/p stents x3, HfpEF, HTN, HLD, & DMII who presented to the ED with a CC of central chest pressure that began between 8-9PM the day prior to presentation. Per the patient, he was sitting on his cough at home and had sudden onset of central, non-radiating chest pressure with associated SOB. The patient stated that he took some baking soda followed by 2 doses of SL nitro which relieved his pain after about 10-15 minutes. However, per his PCP's recommendations, he proceeded to the ER for further evaluation. He denied any associated nausea, vomiting, diaphoresis, headache or vision changes. ED Course: ASA & nitropaste - Allergies/Adverse Reactions Allergies Allergy/AdvReac Type Severity Reaction Status Date / Time No Known Drug Allergies Allergy Verified 07/08/18 23:12 - Home Medications Medication Instructions Recorded Confirmed Type Acetylcysteine 20% (200mg/mL) 4 ml INH BID 07/08/18 07/08/18 History [Acetadote 20% (200mg/mL)] Allopurinol 100 mg PO DAILY 07/08/18 07/08/18 History Amlodipine [Norvasc] 5 mg PO DAILY 07/08/18 07/08/18 History Aspirin [Ecotrin Low Strength] 81 mg PO DAILY 07/08/18 07/08/18 History Carbidopa/Levodopa [Sinemet CR] 1 tab PO TID 07/08/18 07/08/18 History Clopidogrel Bisulfate [Clopidogrel] 75 mg PO DAILY 07/08/18 07/08/18 History Fluticasone Propionate [Flovent 50 mcg IH DAILY 07/08/18 07/08/18 History Diskus] Folic Acid [Folvite] 1 mg PO DAILY 07/08/18 07/08/18 History Furosemide 20 mg PO QAM 07/08/18 07/08/18 History Lisinopril 2.5 mg PO DAILY 07/08/18 07/08/18 History Potassium Chloride 10 meq PO DAILY 07/08/18 07/08/18 History QUEtiapine Fumarate [SEROquel] 25 mg PO HS 07/08/18 07/08/18 History Ranolazine [Ranexa] 1,000 mg PO BID 07/08/18 07/08/18 History Tamsulosin HCl [Flomax] 0.4 mg PO DAILY 07/08/18 07/08/18 History glipiZIDE [Glipizide] 5 mg PO DAILY 07/08/18 07/08/18 History Nitroglycerin 0.4 mg SL PRN PRN #20 tab.subl 09/14/18 Rx - History PMHx: CAD s/p stent placement x3, HFpEF (55-60% in June of 2018), HTN, gout, Parkinson's disease, BPH, DMII PSHx: stent placement x3 & lumbar & neck surgery FHx: Mother- ovarian CA Social: Lives at home with in [place]. Former smoker, smoked 2-3ppd x 40 years but quit ~40 years ago. Former heavy EtOH use but also quit 40 years ago. No drug use. - Review of Systems General: denies: fever/chills, weight/appetite/sleep changes Eyes: denies: eye pain, vision changes ENT: reports: other (no sore throat). denies: nasal congestion Respiratory: reports: shortness of breath. denies: cough Cardiovascular: reports: chest pain. denies: edema Gastrointestinal: reports: constipation. denies: nausea, vomiting, diarrhea, abdominal pain Genitourinary: reports: other (no hematuria; + frequency). denies: dysuria Skin: denies: rashes, lesions Musculoskeletal: denies: pain, tenderness, swelling Neurological: denies: syncope, seizure Psychological: denies: anxiety, depression - Vital signs BP: 177/69 HR: 54 RR: 15 Tmax: 97.9F Pox: 97% on RA Wt: 76.2 kg - Physical Exam Constitutional: NAD, awake, alert and oriented, well developed HEENT: normocephalic and atraumatic, conjunctiva clear, grossly normal vision, grossly normal hearing Neck: supple, FROM Heart: RRR, normal S1/S2, no murmurs/rubs/gallops, pulses present, no edema Lungs: CTAB, no respiratory distress, good air movement, no rales/rhonchi, no wheezing, no retractions Abdomen: soft, non-tender, bowel sounds present Musculoskeletal: normal structure, ROM grossly normal Neurological: no focal deficit, CN II-XII intact (grossly), other (resting tremor noted in B/L upper extremities, R>L) Skin: no rash/lesions, good turgor, capillary refill <2 seconds Heme/Lymphatic: no unusual bruising or bleeding, no purpura, no petechia Psychiatric: normal mood and affect, good judgment and insight, intact recent and remote memory FMR H&P: Results - Labs Lab results: Laboratory Tests 09/14/18 09/14/18 09/14/18 01:45 01:45 01:45 Hgb 13.1 L Hct 39.7 L MCV 89.9 BUN 28 H Creatinine 1.95 H Troponin I B-Natriuretic Peptide 393.6 H 09/14/18 09/14/18 01:45 03:44 Hgb Hct MCV BUN Creatinine Troponin I 0.021 0.014 B-Natriuretic Peptide - EKG Interpretation EKG: sinus tamica at [address] changes - Radiology Interpretation Chest x-ray Status: image reviewed by me (unremarkable), pending FMR H&P: A/P - Problem List (1) CKD (chronic kidney disease), stage III Current Visit: Yes Status: Acute Code(s): N18.3 - CHRONIC KIDNEY DISEASE, STAGE 3 (MODERATE) (2) BPH (benign prostatic hyperplasia) Current Visit: Yes Status: Acute Code(s): N40.0 - BENIGN PROSTATIC HYPERPLASIA WITHOUT LOWER URINRY TRACT SYMP (3) CAD (coronary artery disease) Current Visit: No Status: Acute Code(s): I25.10 - ATHSCL HEART DISEASE OF [place] CORONARY ARTERY W/O ANG PCTRS (4) CHF (congestive heart failure) Current Visit: No Status: Acute Code(s): I50.9 - HEART FAILURE, UNSPECIFIED (5) Chest pain Current Visit: No Status: Acute Code(s): R07.9 - CHEST PAIN, UNSPECIFIED (6) DMII (diabetes mellitus, type 2) Current Visit: No Status: Acute (7) Gout Current Visit: No Status: Acute Code(s): M10.9 - GOUT, UNSPECIFIED (8) HLD (hyperlipidemia) Current Visit: No Status: Acute Code(s): E78.5 - HYPERLIPIDEMIA, UNSPECIFIED (9) HTN (hypertension) Current Visit: No Status: Acute Code(s): I10 - ESSENTIAL (PRIMARY) HYPERTENSION (10) Parkinson disease Current Visit: No Status: Acute Code(s): G20 - PARKINSON'S DISEASE - Plan Typical CP 2/2 stable angina -Patient presented with typical chest pain that 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 Initial EKG in [place] and EKG here both negative for any acute ST changes. Initial troponin also indeterminately elevated. -Patient reportedly had abnormal stress test and LHC with additional stent placement about 10 months ago in [place]. Thus, given his extensive cardiac history will admit to telemetry for observation and trend cardiac enzymes. Will order PRN SL nitro should his chest pain return. -Will keep patient NPO and consider consulting cardiology this AM for any further potential work up while hospitalized vs outpatient. CAD s/p stent placement x3 - Aware, will resume home meds. HFpEF -EF of 55-60% per Echo done at last hospitalization in June. BNP elevated just over 300 but has been much higher previously & patient does not appear to be in acute exacerbation. Will monitor I&Os and fluid status closely & resume home meds. HTN - Will resume home meds. CKD3 -Aware, renal function appears to be at baseline. Will continue to monitor with QD labwork. Anemia of chronic disease - Appears to be at baseline. Will continue to monitor with bloodwork. Parkinson's disease - Will resume home meds. gout - Will resume home meds. BPH - Will resume home meds. FMR H&P: Upper Level - Pertinent history 83 yo AAM with PMH of CAD s/p multiple stents, Parkinson's, and CKD presenting with episode of CP that began while watching TV at home. Described as substernal pressure. Pt took 2 SL nitro at home which did not relieve the pain. He presented to [place] ER where nitropaste did alleviate his pain. Pt currently denies CP, SOB, diaphoresis, or NVD. - Pertinent findings VSS Gen: NAD CV: RRR, occasionally bradycardic Resp: CTAB - Plan Date/Time: 09/14/18 0500 I, Lee Boo MD PGY3, have evaluated this patient and agree with findings/ plan as outlined by internal combustion engine subassembler resident. Pertinent changes/additions are listed here. 1. Typical CP 2/2 stable angina -Admit to telemetry observation and trend cardiac enzymes. -Pt reportedly had abnormal stress test and LHC with additional stent placement about 10 months ago in [place]. -Will keep pt NPO and consider consulting cardiology this AM for any further potential work up while hospitalized vs outpatient. -Pt does not currently have CP and has not had recurrence since transfer, making unstable angina unlikely. 2. HFpEF -Monitor I/O and fluid status. 3. CKD3 -At baseline. See internal combustion engine subassembler note for other chronic medical conditions. PPx: Lovenox for VTE, no GI indicated. disposition: Admit to telemetry observation for anticipated length of stay less than two midnights, pending clinical course. Addendum - Attending - Attending Attestation Date/Time: 09/14/18 3729 I personally evaluated the patient and discussed the management with Dr. Ortega/ Rajeev. I agree with the History, Examination, Assessment and Plan documented above with any addition or exceptions noted below. Patient with known history of CAD and stable angina here with similar symptoms. Troponins negative and his chest pain resolved outpatient with Nitro. He reports taking Nitro on occasion at home but had run out. He feels better now. Discuss with his outpatient metal sprayer, but given prior history of known disease and having been told his care is non operable any longer, suspect he is stable for discharge with Nitro and outpatient follow up with cardiology.
[2018-09-14] MEDS ORDERED: HumaLOG 300 UNITS/3 ML VIAL SC PRN ×2 (07:38)
[2018-09-14] MEDS ORDERED: Senokot S 8.6-50 MG TAB PO PRN (07:38)
[2018-09-14] MEDS ORDERED: Dextrose 5% in Water 1,000 ML IV PRN (07:38)
[2018-09-14] MEDS ORDERED: Nitroglycerin 0.4 MG TAB (25 Tab Bottle) PO PRN (07:38)
[2018-09-14] MEDS ORDERED: Dextrose 50% Abboject 50 ML SYRINGE SLOW IVP PRN (07:38)
[2018-09-14] MEDS ORDERED: Acetaminophen 325 MG TAB PO PRN (07:38)
[2018-09-14] MEDS ORDERED: Ondansetron ODT 4 MG TAB PO PRN (07:38)
[2018-09-14 08:31] LABS: Cardiac Risk 4.9 (Less than 4.5)
[2018-09-14 08:32] LABS: Troponin I 0.012 ng/mL (< 0.028)
[2018-09-14] MEDS ORDERED: Tamsulosin HCl 0.4 MG CAP PO SCH (09:00)
[2018-09-14] MEDS ORDERED: Folic Acid 1 MG TAB PO SCH (09:00)
[2018-09-14] MEDS ORDERED: Amlodipine 5 MG TAB PO SCH (09:00)
[2018-09-14] MEDS ORDERED: Non-Formulary Item 1 EACH (Carbidopa/Levodopa [Sinemet Cr] 1 TAB) PO SCH (09:00)
[2018-09-14] MEDS ORDERED: Aspirin 81 mg Enteric Coated Tablet PO SCH ×2 (09:00)
[2018-09-14] MEDS ORDERED: Furosemide 20 MG TAB PO SCH (09:00)
[2018-09-14] MEDS ORDERED: Non-Formulary Item 1 EACH (Potassium Chloride [Potassium Chloride] 10 MEQ) PO SCH (09:00)
[2018-09-14] MEDS ORDERED: Enoxaparin Sodium 40 MG/0.4 ML SYRINGE SC SCH (09:00)
[2018-09-14] MEDS ORDERED: Clopidogrel Bisulfate 75 MG TAB PO SCH (09:00)
[2018-09-14] MEDS ORDERED: Non-Formulary Item 1 EACH (Ranolazine [Ranexa] 1,000 MG) PO SCH (09:00)
[2018-09-14] MEDS ORDERED: Allopurinol 100 MG TAB PO SCH (09:00)
[2018-09-14] MEDS ORDERED: Potassium Chloride 10 MEQ TAB PO SCH (09:00)
[2018-09-14] MEDS ORDERED: Aspirin 325 mg Enteric Coated Tablet PO SCH (09:00)
[2018-09-14] MEDS: Carbidopa/Levodopa CR 50-200 mg Tablet PO SCH ×2 (09:12→15:24)
[2018-09-14 10:26] LABS: Troponin I 0.013 ng/mL (< 0.028)
[2018-09-14 11:16] VITALS: TEMP 97.4
[2018-09-14 11:54] VITALS: BMI 25.3
[2018-09-14 12:01] VITALS: BP 149/64
--- NOTE | 2018-09-15 13:38 | DIS ---
DATE OF ADMISSION: 09/14/2018 DATE OF DISCHARGE: 09/14/2018 ADMITTING ATTENDING: Jose Singleton MD CONSULTS: None. IMAGING: None. DISCHARGE MEDICATIONS: 1. Tamsulosin 0.4 mg p.o. daily. 2. Sinemet 1 tablet p.o. t.i.d. 3. Ranexa 1000 mg p.o. daily. 4. K-Chlor 10 mEq p.o. daily. 5. Nitroglycerin 0.4 mg SL p.r.n. 6. Glipizide 5 mg p.o. daily. 7. Lisinopril 2.5 mg p.o. daily. 8. Furosemide 20 mg p.o. q.a.m. 9. Folic acid 1 mg p.o. daily. 10. Fluticasone 50 mcg inhaled daily. 11. Clopidogrel 75 mg p.o. daily. 12. Aspirin 81 mg p.o. daily. 13. Amlodipine 5 mg p.o. daily. 14. Allopurinol 100 mg p.o. daily. 15. Acetylcysteine 4 mL inhaled b.i.d. PRIMARY DIAGNOSIS: Typical chest pain secondary to stable angina. SECONDARY DIAGNOSES: 1. Coronary artery disease status post stent placement x3. 2. Heart failure with preserved ejection fraction. 3. Hypertension. 4. Chronic kidney disease, stage 3. 5. Anemia of chronic disease. 6. Parkinson disease. 7. Gout. 8. BPH. HISTORY OF PRESENT ILLNESS/HOSPITAL COURSE: An 83-year-old male with a past medical history significant for coronary artery disease, not amenable to further operative intervention, heart failure with preserved ejection fraction, and Parkinson's who presents to the ER with chief complaint of chest pain and pressure the prior day, resolving with nitroglycerin administration in the emergency room. The patient ran out recently on nitroglycerin at home and was unable to take it at home, but reports that he has similar chest pain frequently that resolves with nitroglycerin. Admitted to observation on telemetry and troponins were downtrended. The patient's vital signs remained stable. Chest pain resolved on admission. The patient was deemed stable for discharge home. DISCHARGE INSTRUCTIONS: Location: Home. Diet: Heart healthy, low-sodium. Activity: As tolerated. Followup: Follow up with Cardiology, Dr. Adams in the next 2 weeks and PCP, Dr. Burnham in the next 7 days. Job ID: [id number]
== END 2018-09-14 15:23 | disposition home or self-care (01) ==
LOC: ERS 03:24 → 2SW 07:16
PROVIDERS: ADMIT Family Medicine; ATTEND Family Medicine
DX: I25.118 Atherosclerotic heart disease of native coronary artery with other forms of angina pectoris (principal); I13.0 Hypertensive heart and chronic kidney disease with heart failure and stage 1 through stage 4 chronic kidney disease, or unspecified chronic kidney disease; E11.22 Type 2 diabetes mellitus with diabetic chronic kidney disease; N18.3 Chronic kidney disease, stage 3 (moderate); I50.30 Unspecified diastolic (congestive) heart failure; D63.1 Anemia in chronic kidney disease; E78.5 Hyperlipidemia, unspecified; G20 Parkinson's disease; M10.9 Gout, unspecified; N40.0 Benign prostatic hyperplasia without lower urinary tract symptoms; Z79.51 Long term (current) use of inhaled steroids; Z79.82 Long term (current) use of aspirin; Z79.84 Long term (current) use of oral hypoglycemic drugs; Z79.899 Other long term (current) drug therapy; Z87.891 Personal history of nicotine dependence; Z95.5 Presence of coronary angioplasty implant and graft
CPT/HCPCS: 80061; 84484; 93005; 99285; G0378 ×2; 36415

== ENCOUNTER 2020-07-04 11:35 | Inpatient (IN) | payer MEDICARE ==
[2020-07-04 13:33] LABS: Hemoglobin 16.7 g/dL (14.0-18.0); Mean Corpuscular HGB CONC 32.8 g/dL (32.0-36.0); Mean Corpuscular Hemoglobin 32.5 pg (27.0-31.0); Mean Corpuscular Volume 98.9 fL (78.0-98.0); Mean Platelet Volume 9.9 fL (7.4-10.4); Platelet Count 123 thou/uL (130-400); RBC Distribution Width 13.1 % (11.5-14.5); Red Blood Cell (RBC) Count 5.13 mill/uL (4.70-6.10); White Blood Cell (WBC) Count 13.7 thou/uL (4.8-10.8)
[2020-07-04 14:10] LABS: ALT (SGPT) 23 U/L (8-55); AST (SGOT) 29 U/L (5-34); Albumin 3.9 g/dL (3.4-4.8); Alkaline Phosphatase 98 U/L (40-110); Anion Gap 19 mmol/L (10-20); BUN (Urea Nitrogen) 28 mg/dL (8.4-25.7); Bilirubin, Total 1.7 mg/dL (0.2-1.2); Calc. Creatinine Clearance 0 mL/min (70-130); Calcium 8.9 mg/dL (7.8-10.44); Carbon Dioxide 23 mmol/L (23-31); Chloride 113 mmol/L (98-107); Globulin 3.3 g/dL (2.4-3.5); Glucose 155 mg/dL (83-110); Potassium 4.6 mmol/L (3.5-5.1); Protein, Total 7.2 g/dL (5.8-8.1); Sodium 150 mmol/L (136-145)
[2020-07-04 14:12] LABS: Band 9 % (5-11); Lymphocytes 2 % (21-51); MDiff Complete? YES; Macrocytosis SLIGHT = 6-15 cells (100X) (0-5/hpf); Monocytes 8 % (0-10); Neutrophil 75 % (42-75); Platelet Morphology Comment Appears Decreased; Reactive Lymphocytes 6 % (0-10); Target Cells SLIGHT = 2-5 cells (100X) (0-1/hpf)
[2020-07-04 14:20] LABS: CKMB 1.4 ng/mL (0-6.6)
[2020-07-04 14:27] LABS: Magnesium 2.3 mg/dL (1.6-2.6)
[2020-07-04 15:31] LABS: Bilirubin Negative (Negative); Blood, Urine Negative (Negative); Clarity Clear (Clear); Glucose, Urine (Dipstick) Normal (Negative); Ketone, Urine Negative (Negative); Leukocyte Negative Leu/uL (Negative); Nitrite Negative (Negative); Protein, Urine (Dipstick) 10 mg/dL (Neg-Trace); Specific Gravity, Urine 1.023 (1.002-1.036); Urobilinogen Normal mg/dL (Less than 2); pH, Urine 5.5 (5.0-9.0)
[2020-07-04] MEDS ORDERED: Ondansetron PF 4 MG/2 ML Vial IVP PRN (16:56)
[2020-07-04] MEDS ORDERED: hydrALAZINE 20 MG/ML VIAL SLOW IVP PRN (17:07)
[2020-07-04] MEDS ORDERED: Dextrose 5% in Water 1,000 ML IV SCH (17:15)
[2020-07-04 18:05] LABS: Anion Gap 17 mmol/L (10-20); BUN (Urea Nitrogen) 27 mg/dL (8.4-25.7); Calc. Creatinine Clearance 0 mL/min (70-130); Carbon Dioxide 24 mmol/L (23-31); Chloride 114 mmol/L (98-107); Glucose 145 mg/dL (83-110); Potassium 3.7 mmol/L (3.5-5.1); Sodium 151 mmol/L (136-145)
[2020-07-04 18:11] LABS: Troponin I 0.082 ng/mL (< 0.028)
[2020-07-04 22:01] LABS: Anion Gap 16 mmol/L (10-20); BUN (Urea Nitrogen) 26 mg/dL (8.4-25.7); Calc. Creatinine Clearance 0 mL/min (70-130); Calcium 8.6 mg/dL (7.8-10.44); Carbon Dioxide 23 mmol/L (23-31); Chloride 116 mmol/L (98-107); Glucose 151 mg/dL (83-110); Potassium 3.7 mmol/L (3.5-5.1); Sodium 151 mmol/L (136-145)
[2020-07-04] MEDS: Dextrose 5% in Water 1,000 ML IV SCH (22:08)
[2020-07-04 22:09] LABS: Troponin I 0.059 ng/mL (< 0.028)
[2020-07-05 02:27] LABS: #Eosinphils 0.2 thou/uL (0.0-0.7); #Lymphocytes 0.7 thou/uL (1.20-3.40); #Neutrophils 8.9 thou/uL (1.40-6.50); %Basophils 0.2 % (0.0-1.0); %Lymphocytes 6.5 % (21.0-51.0); %Monocytes 8.8 % (0.0-10.0); %Neutrophils 82.5 % (42.0-75.0); Hemoglobin 14.9 g/dL (14.0-18.0); Mean Corpuscular HGB CONC 31.1 g/dL (32.0-36.0); Mean Corpuscular Hemoglobin 30.8 pg (27.0-31.0); Mean Corpuscular Volume 99.1 fL (78.0-98.0); Mean Platelet Volume 9.9 fL (7.4-10.4); Platelet Count 108 thou/uL (130-400); RBC Distribution Width 13.2 % (11.5-14.5); Red Blood Cell (RBC) Count 4.83 mill/uL (4.70-6.10); White Blood Cell (WBC) Count 10.8 thou/uL (4.8-10.8)
[2020-07-05 02:31] LABS: Anion Gap 16 mmol/L (10-20); BUN (Urea Nitrogen) 26 mg/dL (8.4-25.7); Calc. Creatinine Clearance 39 mL/min (70-130); Calcium 8.5 mg/dL (7.8-10.44); Carbon Dioxide 23 mmol/L (23-31); Chloride 113 mmol/L (98-107); Glucose 197 mg/dL (83-110); Potassium 3.9 mmol/L (3.5-5.1); Sodium 148 mmol/L (136-145)
[2020-07-05] MEDS ORDERED: Dextrose 5% in Water 1,000 ML IV PRN (03:18)
[2020-07-05] MEDS ORDERED: HumaLOG 300 UNITS/3 ML VIAL SC PRN (03:18)
[2020-07-05] MEDS ORDERED: Dextrose 50% Abboject 50 ML SYRINGE SLOW IVP PRN (03:18)
[2020-07-05 04:33] LABS: SARS-CoV-2 PCR by NAA Not Detected (NotDetected)
[2020-07-05 05:06] LABS: Anion Gap 16 mmol/L (10-20); BUN (Urea Nitrogen) 25 mg/dL (8.4-25.7); Calc. Creatinine Clearance 42 mL/min (70-130); Calcium 8.4 mg/dL (7.8-10.44); Carbon Dioxide 22 mmol/L (23-31); Chloride 114 mmol/L (98-107); Glucose 188 mg/dL (83-110); Potassium 4.3 mmol/L (3.5-5.1); Sodium 148 mmol/L (136-145)
[2020-07-05] MEDS: HumaLOG 300 UNITS/3 ML VIAL SC PRN (05:55)
[2020-07-05] MEDS: Enoxaparin Sodium 40 MG/0.4 ML SYRINGE SC SCH (09:41)
[2020-07-05] MEDS: Dextrose 5% in Water 1,000 ML IV SCH ×2 (09:41→16:40)
[2020-07-05 12:27] LABS: Anion Gap 16 mmol/L (10-20); BUN (Urea Nitrogen) 23 mg/dL (8.4-25.7); Calc. Creatinine Clearance 45 mL/min (70-130); Calcium 8.7 mg/dL (7.8-10.44); Carbon Dioxide 26 mmol/L (23-31); Chloride 109 mmol/L (98-107); Glucose 160 mg/dL (83-110); Potassium 3.7 mmol/L (3.5-5.1); Sodium 147 mmol/L (136-145)
[2020-07-05] MEDS ORDERED: Lisinopril 10 MG TAB PO SCH (15:45)
[2020-07-05 17:31] LABS: Anion Gap 17 mmol/L (10-20); BUN (Urea Nitrogen) 21 mg/dL (8.4-25.7); Calc. Creatinine Clearance 50 mL/min (70-130); Calcium 8.4 mg/dL (7.8-10.44); Carbon Dioxide 17 mmol/L (23-31); Chloride 112 mmol/L (98-107); Glucose 156 mg/dL (83-110); Potassium 4.1 mmol/L (3.5-5.1); Sodium 142 mmol/L (136-145)
[2020-07-05] MEDS: Carbidopa/Levodopa 25-100 mg Tablet PO SCH ×2 (18:47→21:55)
[2020-07-06 04:42] LABS: #Eosinphils 0.4 thou/uL (0.0-0.7); #Lymphocytes 0.9 thou/uL (1.20-3.40); #Monocytes 0.8 thou/uL (0.11-0.59); #Neutrophils 9.2 thou/uL (1.40-6.50); %Basophils 0.1 % (0.0-1.0); %Eosinophils 3.3 % (0.0-10.0); %Lymphocytes 7.8 % (21.0-51.0); %Monocytes 6.7 % (0.0-10.0); %Neutrophils 82.2 % (42.0-75.0); Hemoglobin 14.6 g/dL (14.0-18.0); Mean Corpuscular Hemoglobin 32.5 pg (27.0-31.0); Mean Corpuscular Volume 98.3 fL (78.0-98.0); Mean Platelet Volume 10.1 fL (7.4-10.4); Platelet Count 95 thou/uL (130-400); RBC Distribution Width 12.8 % (11.5-14.5); Red Blood Cell (RBC) Count 4.51 mill/uL (4.70-6.10); White Blood Cell (WBC) Count 11.1 thou/uL (4.8-10.8)
[2020-07-06 04:49] LABS: Anion Gap 10 mmol/L (10-20); BUN (Urea Nitrogen) 21 mg/dL (8.4-25.7); Calc. Creatinine Clearance 51 mL/min (70-130); Calcium 8.2 mg/dL (7.8-10.44); Carbon Dioxide 29 mmol/L (23-31); Chloride 105 mmol/L (98-107); Glucose 133 mg/dL (83-110); Potassium 3.2 mmol/L (3.5-5.1); Sodium 141 mmol/L (136-145)
[2020-07-06] MEDS ORDERED: Potassium Chloride 20 MEQ TAB PER TUBE SCH (07:15)
[2020-07-06] MEDS ORDERED: Potassium Bicarbonate/Cit Ac 20 MEQ TAB PER TUBE SCH (07:30)
[2020-07-06] MEDS ORDERED: Lisinopril 10 MG TAB PER TUBE SCH (09:00)
[2020-07-06] MEDS ORDERED: Amlodipine 10 MG TAB PER TUBE SCH (09:00)
[2020-07-06] MEDS ORDERED: Folic Acid 1 MG TAB PO SCH (09:00)
[2020-07-06] MEDS ORDERED: Clopidogrel Bisulfate 75 MG TAB PER TUBE SCH (09:00)
[2020-07-06] MEDS ORDERED: Lisinopril 2.5 MG TAB PO SCH ×2 (09:00)
[2020-07-06] MEDS ORDERED: Aspirin 81 mg Enteric Coated Tablet PO SCH (09:00)
[2020-07-06] MEDS ORDERED: Lisinopril 10 MG TAB PO SCH (09:00)
[2020-07-06] MEDS ORDERED: Clopidogrel Bisulfate 75 MG TAB PO SCH ×2 (09:00)
[2020-07-06] MEDS ORDERED: Isosorbide Mononitrate 20 MG TAB PO PRN (10:15)
[2020-07-06] MEDS: Aspirin Chewable 81 MG TAB PO SCH (10:19)
[2020-07-06] MEDS: Carbidopa/Levodopa 25-100 mg Tablet PO SCH ×3 (10:19→21:12)
[2020-07-06] MEDS: Folic Acid 1 MG TAB PER TUBE SCH (10:25)
[2020-07-06] MEDS: Enoxaparin Sodium 40 MG/0.4 ML SYRINGE SC SCH (10:41)
[2020-07-07 04:37] LABS: Anion Gap 14 mmol/L (10-20); BUN (Urea Nitrogen) 21 mg/dL (8.4-25.7); Calc. Creatinine Clearance 55 mL/min (70-130); Calcium 8.7 mg/dL (7.8-10.44); Carbon Dioxide 25 mmol/L (23-31); Chloride 106 mmol/L (98-107); Glucose 151 mg/dL (83-110); Sodium 141 mmol/L (136-145)
[2020-07-07] MEDS: Enoxaparin Sodium 40 MG/0.4 ML SYRINGE SC SCH (08:15)
[2020-07-07] MEDS: Lisinopril 10 MG TAB PO SCH (08:15)
[2020-07-07] MEDS: Clopidogrel Bisulfate 75 MG TAB PO SCH (08:15)
[2020-07-07] MEDS: Amlodipine 10 MG TAB PO SCH (08:16)
[2020-07-07] MEDS: Isosorbide Mononitrate 20 MG TAB PO SCH (08:16)
[2020-07-07] MEDS: Carbidopa/Levodopa 25-100 mg Tablet PO SCH ×3 (08:16→22:06)
[2020-07-07] MEDS: Folic Acid 1 MG TAB PER TUBE SCH (08:16)
[2020-07-07] MEDS: Aspirin Chewable 81 MG TAB PO SCH (08:16)
[2020-07-07] MEDS: HumaLOG 300 UNITS/3 ML VIAL SC PRN (11:55)
[2020-07-08 05:26] LABS: Anion Gap 12 mmol/L (10-20); BUN (Urea Nitrogen) 20 mg/dL (8.4-25.7); Calc. Creatinine Clearance 53 mL/min (70-130); Calcium 8.6 mg/dL (7.8-10.44); Carbon Dioxide 25 mmol/L (23-31); Chloride 106 mmol/L (98-107); Glucose 145 mg/dL (83-110); Potassium 3.5 mmol/L (3.5-5.1); Sodium 139 mmol/L (136-145)
[2020-07-08] MEDS: Clopidogrel Bisulfate 75 MG TAB PO SCH (08:43)
[2020-07-08] MEDS: Lisinopril 10 MG TAB PO SCH (08:43)
[2020-07-08] MEDS: Folic Acid 1 MG TAB PER TUBE SCH (08:43)
[2020-07-08] MEDS: Isosorbide Mononitrate 20 MG TAB PO SCH (08:43)
[2020-07-08] MEDS: Carbidopa/Levodopa 25-100 mg Tablet PO SCH ×3 (08:43→21:12)
[2020-07-08] MEDS: Amlodipine 10 MG TAB PO SCH (08:43)
[2020-07-08] MEDS: Aspirin Chewable 81 MG TAB PO SCH (08:44)
[2020-07-08] MEDS: Enoxaparin Sodium 40 MG/0.4 ML SYRINGE SC SCH (09:44)
[2020-07-09 05:04] LABS: Anion Gap 12 mmol/L (10-20); BUN (Urea Nitrogen) 27 mg/dL (8.4-25.7); Calc. Creatinine Clearance 47 mL/min (70-130); Calcium 8.5 mg/dL (7.8-10.44); Carbon Dioxide 26 mmol/L (23-31); Chloride 108 mmol/L (98-107); Glucose 144 mg/dL (83-110); Potassium 3.4 mmol/L (3.5-5.1); Sodium 143 mmol/L (136-145)
[2020-07-09] MEDS: Folic Acid 1 MG TAB PER TUBE SCH (08:47)
[2020-07-09] MEDS: Isosorbide Mononitrate 20 MG TAB PO SCH ×2 (08:47→08:48)
[2020-07-09] MEDS: Enoxaparin Sodium 40 MG/0.4 ML SYRINGE SC SCH (08:47)
[2020-07-09] MEDS: Lisinopril 10 MG TAB PO SCH (08:47)
[2020-07-09] MEDS: Carbidopa/Levodopa 25-100 mg Tablet PO SCH ×3 (08:48→22:07)
[2020-07-09] MEDS: Aspirin Chewable 81 MG TAB PO SCH (08:48)
[2020-07-09] MEDS: Amlodipine 10 MG TAB PO SCH (08:48)
[2020-07-09] MEDS: Clopidogrel Bisulfate 75 MG TAB PO SCH (08:48)
[2020-07-09 13:11] VITALS: BMI 21.7
[2020-07-10 04:46] LABS: Anion Gap 14 mmol/L (10-20); BUN (Urea Nitrogen) 25 mg/dL (8.4-25.7); Calc. Creatinine Clearance 48 mL/min (70-130); Calcium 8.8 mg/dL (7.8-10.44); Carbon Dioxide 27 mmol/L (23-31); Chloride 108 mmol/L (98-107); Glucose 141 mg/dL (83-110); Potassium 3.5 mmol/L (3.5-5.1); Sodium 145 mmol/L (136-145)
[2020-07-10] MEDS: Aspirin Chewable 81 MG TAB PO SCH (08:35)
[2020-07-10] MEDS: Amlodipine 10 MG TAB PO SCH (08:35)
[2020-07-10] MEDS: Clopidogrel Bisulfate 75 MG TAB PO SCH (08:35)
[2020-07-10] MEDS: Carbidopa/Levodopa 25-100 mg Tablet PO SCH ×3 (08:35→20:37)
[2020-07-10] MEDS: Isosorbide Mononitrate 20 MG TAB PO SCH (08:35)
[2020-07-10] MEDS: Folic Acid 1 MG TAB PER TUBE SCH (08:35)
[2020-07-10] MEDS: Lisinopril 10 MG TAB PO SCH (08:35)
[2020-07-10] MEDS: Enoxaparin Sodium 40 MG/0.4 ML SYRINGE SC SCH (08:36)
[2020-07-10] MEDS: HumaLOG 300 UNITS/3 ML VIAL SC PRN (11:39)
[2020-07-11 05:41] LABS: Anion Gap 13 mmol/L (10-20); BUN (Urea Nitrogen) 23 mg/dL (8.4-25.7); Calc. Creatinine Clearance 51 mL/min (70-130); Calcium 8.7 mg/dL (7.8-10.44); Carbon Dioxide 27 mmol/L (23-31); Chloride 108 mmol/L (98-107); Glucose 146 mg/dL (83-110); Potassium 3.3 mmol/L (3.5-5.1); Sodium 145 mmol/L (136-145)
[2020-07-11] MEDS ORDERED: Potassium Chloride 20 MEQ TAB PO SCH (08:30)
[2020-07-11] MEDS: Lisinopril 10 MG TAB PO SCH (09:43)
[2020-07-11] MEDS: Amlodipine 10 MG TAB PO SCH (09:43)
[2020-07-11] MEDS: Enoxaparin Sodium 40 MG/0.4 ML SYRINGE SC SCH (09:43)
[2020-07-11] MEDS: Aspirin Chewable 81 MG TAB PO SCH (09:43)
[2020-07-11] MEDS: Carbidopa/Levodopa 25-100 mg Tablet PO SCH (09:43)
[2020-07-11] MEDS: Folic Acid 1 MG TAB PER TUBE SCH (09:44)
[2020-07-11] MEDS: Clopidogrel Bisulfate 75 MG TAB PO SCH (09:44)
[2020-07-11] MEDS: Isosorbide Mononitrate 20 MG TAB PO SCH (09:46)
[2020-07-11 12:01] VITALS: BP 134/62; TEMP 99.1
[2020-07-12] MEDS ORDERED: Potassium Chloride 20 MEQ TAB PO SCH (08:00)
== END 2020-07-11 14:01 | disposition home health service (06) | DRG 641 ==
LOC: ERS 11:35 → 2NO 16:36
PROVIDERS: ADMIT Student in an Organized Health Care Education/Training Program; ATTEND Family Medicine
DX: E87.0 Hyperosmolality and hypernatremia (principal); N17.9 Acute kidney failure, unspecified; I13.0 Hypertensive heart and chronic kidney disease with heart failure and stage 1 through stage 4 chronic kidney disease, or unspecified chronic kidney disease; E44.0 Moderate protein-calorie malnutrition; R64 Cachexia; G93.49 Other encephalopathy; F03.91 Unspecified dementia, unspecified severity, with behavioral disturbance; Z51.5 Encounter for palliative care; Z20.822 Contact with and (suspected) exposure to COVID-19; E86.1 Hypovolemia; R53.1 Weakness; G20 Parkinson's disease; I25.10 Atherosclerotic heart disease of native coronary artery without angina pectoris; E11.22 Type 2 diabetes mellitus with diabetic chronic kidney disease; N18.32 Chronic kidney disease, stage 3b; I50.9 Heart failure, unspecified; E86.0 Dehydration; Z95.5 Presence of coronary angioplasty implant and graft; Z87.891 Personal history of nicotine dependence; Z68.21 Body mass index [BMI] 21.0-21.9, adult; Z74.01 Bed confinement status
CPT/HCPCS: 36415; 36416; 51701; 70450; 71045; 74018; 80048; 80053; 81003; 81015; 82550; 82553; 82570; 83735; 83930; 83935; 84300; 84443; 84484; 85025; 87040; 87635; 93005; J1650; J1815; U0003; U0005

== ENCOUNTER 2020-07-11 14:40 | Emergency (ER) | payer MEDICARE ==
[2020-07-11 16:11] LABS: #Eosinphils 0.1 thou/uL (0.0-0.7); #Lymphocytes 0.7 thou/uL (1.20-3.40); #Neutrophils 17.3 thou/uL (1.40-6.50); %Basophils 0.1 % (0.0-1.0); %Eosinophils 0.3 % (0.0-10.0); %Lymphocytes 3.7 % (21.0-51.0); %Monocytes 5.3 % (0.0-10.0); %Neutrophils 90.6 % (42.0-75.0); Hemoglobin 13.7 g/dL (14.0-18.0); Mean Corpuscular HGB CONC 32.4 g/dL (32.0-36.0); Mean Corpuscular Hemoglobin 31.5 pg (27.0-31.0); Mean Corpuscular Volume 97.3 fL (78.0-98.0); Mean Platelet Volume 10.3 fL (7.4-10.4); Platelet Count 192 thou/uL (130-400); RBC Distribution Width 12.8 % (11.5-14.5); Red Blood Cell (RBC) Count 4.35 mill/uL (4.70-6.10); White Blood Cell (WBC) Count 19.2 thou/uL (4.8-10.8)
[2020-07-11 16:37] LABS: ALT (SGPT) 13 U/L (8-55); AST (SGOT) 68 U/L (5-34); Albumin 3.1 g/dL (3.4-4.8); Alkaline Phosphatase 99 U/L (40-110); Anion Gap 14 mmol/L (10-20); BUN (Urea Nitrogen) 23 mg/dL (8.4-25.7); Bilirubin, Total 1.4 mg/dL (0.2-1.2); Calc. Creatinine Clearance 0 mL/min (70-130); Calcium 8.6 mg/dL (7.8-10.44); Carbon Dioxide 28 mmol/L (23-31); Chloride 108 mmol/L (98-107); Globulin 3.9 g/dL (2.4-3.5); Glucose 147 mg/dL (83-110); Sodium 146 mmol/L (136-145)
[2020-07-11 19:11] LABS: Bacteria/HPF None Seen HPF (None Seen); Bilirubin Negative (Negative); Blood, Urine Trace (Negative); Clarity Clear (Clear); Glucose, Urine (Dipstick) Normal (Negative); Ketone, Urine Negative (Negative); Leukocyte Negative Leu/uL (Negative); Nitrite Negative (Negative); Protein, Urine (Dipstick) 30 mg/dL (Neg-Trace); RBC/HPF 0-3 HPF (0-3); Specific Gravity, Urine 1.022 (1.002-1.036); Squamous Epithelial None Seen HPF (0-3); Urobilinogen 3 mg/dL (Less than 2); WBC/HPF 0-3 HPF (0-3); pH, Urine 5.5 (5.0-9.0)
== END 2020-07-11 22:15 | disposition home or self-care (01) ==
LOC: ERS 14:40
DX: D72.829 Elevated white blood cell count, unspecified (principal); M10.9 Gout, unspecified; E11.9 Type 2 diabetes mellitus without complications; G20 Parkinson's disease; I11.0 Hypertensive heart disease with heart failure; I50.9 Heart failure, unspecified; N40.0 Benign prostatic hyperplasia without lower urinary tract symptoms; Z87.891 Personal history of nicotine dependence; Z79.82 Long term (current) use of aspirin; Z79.899 Other long term (current) drug therapy
CPT/HCPCS: 36415; 71045; 81003; 81015; 85025; 87040; 93005